=== PATIENT | male | born 1955 | race Caucasian/White ===

== ENCOUNTER 2016-10-07 22:30 | Emergency (ER) | payer BC ==
[2016-10-07 22:38] VITALS: BP 135/70
[2016-10-07] MEDS ORDERED: traMADol 50 MG Tab PO ONE (22:42)
--- NOTE | 2016-10-09 21:17 | ER ---
DATE SEEN: 10/07/2016 CHIEF COMPLAINT: Pain in the ear. HPI: A 61-year-old male with pain in the right ear for 2 days, throbbing pain with no radiation. He denies any drainage or hearing loss. REVIEW OF SYSTEMS: No headache. ALLERGIES: Nitroglycerin. PHYSICAL EXAMINATION: VITAL SIGNS: Temperature is normal. Pulse is 57, blood pressure is 135/70. EARS: External ears are normal. There is no tenderness of the tragus. Canals are patent. TMs are intact, poly le. There is tenderness on the right TMJ. NECK: Supple. HEAD: Normocephalic. IMPRESSION: TMJ dysfunction right side. PLAN: Tramadol 50 mg t.i.d. p.r.n., mouth guard, follow up p.r.n. /[id number] DANA/PARVIZ
== END 2016-10-07 22:45 | disposition home or self-care (01) ==
LOC: FB.ED 22:30
DX: M26.601 Right temporomandibular joint disorder, unspecified (principal)
CPT/HCPCS: 99283; A9270